=== PATIENT | male | born 1985 | race Caucasian/White ===

== ENCOUNTER → 2016-08-21 | Outpatient (CLI) | payer BC ==
--- NOTE | 2016-08-21 10:40 | CT ---
EXAMINATION TYPE: CT ChestAbdPelvis w con DATE OF EXAM: 08/21/2016 COMPARISON: CT cap August 09, 2015. Older CTs back through January 09, 2014 HISTORY: Testicular CA CT DLP: 856.3 mGycm. Automated Exposure Control for Dose Reduction was Utilized. CONTRAST: CT scan of the thorax, abdomen and pelvis is performed with oral and with IV Contrast, patient inject ed with 100 mL of Omnipaque 300. FINDINGS: LUNGS: The lungs are grossly clear, there is no concerning parenchymal mass or nodule identified. T here is no pleural effusion or pneumothorax seen. The tracheobronchial tree is patent. MEDIASTINUM: There are no greater than 1 cm hilar or mediastinal lymph nodes. No cardiomegaly or pe ricardial effusion is seen. OTHER: No additional significant abnormality is seen. LIVER/GB: No significant abnormality is appreciated. PANCREAS: No significant abnormality is seen. SPLEEN: Some small splenule in the inferior splenic hilum are redemonstrated. ADRENALS: No significant abnormality is seen. KIDNEYS: Multifocal areas of cortical scarring and/or infarct in right kidney are redemonstrated. BOWEL: No significant abnormality is seen. GENITAL ORGANS: No gross abnormality seen. LYMPH NODES: No greater than 1cm abdominal or pelvic lymph nodes are appreciated. Retroperitoneal cli ps are redemonstrated in the abdomen. Clips along right iliac vessels are again seen. 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 Promi nent Schmorl nodes T12 level are redemonstrated. OTHER: No significant additional abnormality is seen. IMPRESSION: No new mass or adenopathy is seen to suggest neoplastic recurrence.
== END | disposition home or self-care (01) ==
LOC: RADCTMAIN 08:28
PROVIDERS: ATTEND Internal Medicine Hematology & Oncology
DX: C62.90 Malignant neoplasm of unspecified testis, unspecified whether descended or undescended (principal)
CPT/HCPCS: 71260; 74177; Q9967

== ENCOUNTER → 2017-09-13 | Outpatient (CLI) | payer BC ==
--- NOTE | 2017-09-14 13:31 | CT ---
EXAMINATION TYPE: CT ChestAbdPelvis w con DATE OF EXAM: 09/13/2017 COMPARISON: 08/21/2016, 08/02/1715 and 01/21/2015 chest, abdomen, and pelvis CTs. HISTORY: Follow-up for testicular cancer. Observation for metastasis. CT DLP: 1395 mGycm. Automated Exposure Control for Dose Reduction was Utilized. CONTRAST: CT scan of the thorax, abdomen and pelvis is performed with IV Contrast, patient injected with 100 mL of Isovue 300. FINDINGS: LUNGS: The lungs are grossly clear, there is no concerning parenchymal mass or nodule identified. T here is no pleural effusion or pneumothorax seen. The tracheobronchial tree is patent. MEDIASTINUM: There are no greater than 1 cm hilar or mediastinal lymph nodes. No pericardial effusi on is seen. LIVER/GB: Hepatic attenuation approaches criteria for hepatic steatosis. No focal hepatic masses seen . No intrahepatic biliary ductal dilatation. Gallbladder is partially contracted. PANCREAS: No significant abnormality is seen. SPLEEN: No splenomegaly. Splenules are present adjacent to the [place] spleen. ADRENALS: No significant abnormality is seen. KIDNEYS: Cortical defect is again seen of the right kidney likely from prior scarring. Otherwise the kidneys enhance and excrete symmetrically without hydronephrosis. BOWEL: No dilated large or small bowel is present. A solitary surgical clip is seen to the right of t he distal sigmoid colon. GENITAL ORGANS: Prostate gland is slightly heterogenous and mildly enlarged, similar to priors. LYMPH NODES: No greater than 1cm abdominal or pelvic lymph nodes are appreciated. Surgical clips of t he right common iliac chain and periaortic region as well as the aortocaval region in the retroperito neum are seen from prior lymph node dissection. Few scattered nonenlarged periaortic lymph nodes are appreciated such as on series 3 image 85. These are similar to the prior. OSSEOUS STRUCTURES: Stable punctate femoral head indeterminant subcentimeter sclerotic lesions are se en, favored to be benign. Again there is a transitional-type L6 vertebrae with hemisacralization on t he right and T12 large Schmorl's lymph node. Sclerotic focus of T9 may represent a small bone island and is punctate. This is also unchanged from the prior. IMPRESSION: No new evidence of visceral or osseous metastasis within the chest, abdomen, or pelvis. Similar-appea ring nonenlarged periaortic lymph nodes with no suspicious adenopathy in the chest, abdomen or pelvis .
== END | disposition home or self-care (01) ==
LOC: RADCTMAIN 14:38
PROVIDERS: ATTEND Internal Medicine Hematology & Oncology
DX: C62.90 Malignant neoplasm of unspecified testis, unspecified whether descended or undescended (principal)
CPT/HCPCS: 71260; 74177; Q9967

== ENCOUNTER → 2018-09-02 | Outpatient (CLI) | payer BC ==
--- NOTE | 2018-09-02 22:46 | CT ---
EXAMINATION TYPE: CT ChestAbdPelvis w con DATE OF EXAM: 09/02/2018 COMPARISON: 09/13/2017 HISTORY: 33-year-old male Follow up testicular cancer. No complaints at time of scan. TECHNIQUE: Contiguous axial scanning of the chest, abdomen, and pelvis performed with IV Contrast, pa tient injected with 100 mL of Isovue 300. Delayed images through the kidneys were obtained. Coronal/s agittal reconstructions performed. CT DLP: 795.3 mGycm Automated exposure control for dose reduction was used. FINDINGS: Chest: Heart normal size without pericardial effusion. Aorta normal caliber with conventional branching anatomy. No thoracic lymphadenopathy. Mild dependent atelectasis. 4 mm nodularity anterior right midlung, axial image 30 is unchanged. Mild biapical pleural-parenchyma l scarring. No consolidation or pleural effusion. ABDOMEN: Tiny hiatal hernia. No focal liver lesion or biliary ductal dilatation. Portal venous system is patent. Gallbladder, adrenal glands, left kidney, spleen, hilar splenules, and pancreas appear within normal limits. Cortical defects within the right kidney are unchanged and suggests sequela of prior vascular or infe ctious insults. Multiple surgical clips along the retroperitoneum are redemonstrated. A few scattered prominent but nonenlarged mesenteric lymph nodes are unchanged. No mesenteric or retr operitoneal lymphadenopathy identified. Oral contrast has progressed to the mid transverse colon. There is mild stool burden. No pericolonic inflammatory change. Pelvis: Bladder is urine distended. Prostate gland measures 4.8 cm wide. No abnormal fluid collection in the pelvis or pelvic lymphadenopathy. Bones: Right L5 hemisacralization with scattered mild endplate spondylosis lower thoracic spine. No osseous destructive process. IMPRESSION: 1. STATUS POST RETROPERITONEAL NODE DISSECTION. NO SUSPICIOUS LYMPHADENOPATHY OR MASS IDENTIFIED TO S UGGEST RECURRENT OR METASTATIC DISEASE. 2. TINY HIATAL HERNIA.
== END | disposition home or self-care (01) ==
LOC: RADCTMAIN 11:19
PROVIDERS: ATTEND Internal Medicine Hematology & Oncology
DX: Z03.89 Encounter for observation for other suspected diseases and conditions ruled out (principal); C62.90 Malignant neoplasm of unspecified testis, unspecified whether descended or undescended; K44.9 Diaphragmatic hernia without obstruction or gangrene; Z98.890 Other specified postprocedural states
CPT/HCPCS: 71260; 74177; Q9967

== ENCOUNTER → 2019-09-17 | Outpatient (CLI) | payer BC ==
--- NOTE | 2019-09-17 11:12 | CT ---
EXAMINATION TYPE: CT ChestAbdPelvis w con DATE OF EXAM: 09/17/2019 COMPARISON: Prior CT September 02, 2018 and older CTs. HISTORY: follow up testicular cancer diagnosed [address] DLP: 725.4 mGycm. Automated Exposure Control for Dose Reduction was Utilized. CONTRAST: CT scan of the thorax, abdomen and pelvis is performed with oral and with IV Contrast, patient inject ed with 100 mL of Isovue 300. FINDINGS: LUNGS: The lungs remain grossly clear, there is no concerning new parenchymal mass or nodule identifi ed. There is no pleural effusion or pneumothorax seen bilaterally. The tracheobronchial tree is pa tent. MEDIASTINUM: There are no greater than 1 cm hilar or mediastinal lymph nodes. No cardiomegaly or pe ricardial effusion is seen. LIVER/GB: No significant abnormality is appreciated. PANCREAS: No significant abnormality is seen. SPLEEN: Stable small splenule axial image 68.. ADRENALS: No significant abnormality is seen. KIDNEYS: Symmetric cortical medullary uptake and excretion without hydronephrosis seen bilaterally. A reas of scarring in the right kidney redemonstrated. BOWEL: No significant abnormality is seen. GENITAL ORGANS: No gross abnormality seen. LYMPH NODES: No new greater than 1cm abdominal or pelvic lymph nodes are appreciated. Surgical clips in the retroperitoneum along the course of the IVC and right iliac vessels redemonstrated. OSSEOUS STRUCTURES: Transitional type L6 vertebra sacralized on the right redemonstrated. Prominent S chmorl node superior T12 endplate again seen. Stable tiny sclerotic focus T9 vertebral coronal image 58% benign. OTHER: Right testicle surgically absent. IMPRESSION: No suspicious new mass or adenopathy identified to suggest active recurrent neoplasm.
== END | disposition home or self-care (01) ==
LOC: RADCTMAIN 09:00
PROVIDERS: ATTEND Internal Medicine Hematology & Oncology
DX: C62.90 Malignant neoplasm of unspecified testis, unspecified whether descended or undescended (principal)
CPT/HCPCS: 71260; 74177; Q9967